=== PATIENT | female | born 1995 | race African-American/Black ===

== ENCOUNTER 2021-07-25 13:10 | Emergency (ER) | payer SELFPAY ==
[~2021-07-25] VITALS: Ht 157.5 cm; Wt 77.0 kg
[2021-07-25 13:57] VITALS: BP 111/86
[2021-07-25] MEDS ORDERED: CLOT15CR27 TP (14:01)
== END 2021-07-25 14:38 | disposition home or self-care (01) ==
LOC: ER 13:10
DX: R21 Rash and other nonspecific skin eruption (principal)
CPT/HCPCS: 81025; 99282